=== PATIENT | male | born 1970 | race Caucasian/White ===

== ENCOUNTER 2023-01-30 23:43 | Emergency (ER) | payer BC, SELFPAY ==
[2023-01-30 23:48] VITALS: BP 150/85; PULSE 83; RESP 18; TEMP 36.8; O2SAT 96; BMI 28.5
--- NOTE | 2023-01-30 23:58 | ED.LOWEXI1 ---
HPI - Extremity Injury (Lower) General Chief Complaint: Extremity Injury, Lower Time Seen by Provider: 01/30/23 23:55 Source: patient Mode of arrival: walk-in Limitations: no limitations History of Present Illness HPI Narrative: left foot pain. woke up with pain this AM. No injury. No history of gout. Increased pain with weight bearing. Denies similar pain in the past. Related Data Home Medications Medication Instructions Recorded Confirmed bupropion HCl 150 mg 24 hr tablet, 150 mg PO DAILY 01/30/23 01/30/23 extended release clonazepam 1 mg tablet 1 mg PO DAILY 01/30/23 01/30/23 escitalopram oxalate 20 mg tablet 20 mg PO DAILY 01/30/23 01/30/23 meloxicam 15 mg tablet 15 mg PO DAILY 01/30/23 01/30/23 Allergies Allergy/AdvReac Type Severity Reaction Status Date / Time No Known Drug Allergies Allergy Verified 01/30/23 23:48 Review of Systems ROS Status of ROS 10 or more systems reviewed and unremarkable except as noted in history and below Exam Constitutional Vital Signs - 24 hr 01/30/23 23:48 Temperature 98.3 F Pulse Rate [Monitor] 83 Respiratory Rate 18 Blood Pressure [Right Arm] 150/85 H Pulse Oximetry 96 Oxygen Delivery Method Room Air Common normals: no apparent distress, average body habitus, oriented x3, no limitations and healthy appearing HENPR Common normals: normocephalic and head/scalp atraumatic Eye Common normals: PERRL and EOMs intact bilaterally Respiratory Common normals: normal respiratory effort, no retractions and no use of accessory muscles Cardio Common normals: regular rate, regular rhythm, S1 normal heart sound and S2 normal heart sound Extremity Other: mild swelling mid aspect dorsum left foot. Moderate tenderness with light palpation Neuro Common normals: oriented x3, CN's II-XII intact bilaterally, moves all extremities and no focal motor deficits Psych Appearance: grossly normal Course Vital Signs Vital signs: Vital Signs Temperature 98.3 F 01/30/23 23:48 Pulse Rate 83 01/30/23 23:48 Respiratory Rate 18 01/30/23 23:48 Blood Pressure 150/85 H 01/30/23 23:48 Pulse Oximetry 96 01/30/23 23:48 Oxygen Delivery Method Room Air 01/30/23 23:48 Temperature 98.3 F 01/30/23 23:48 Pulse Rate 83 01/30/23 23:48 Respiratory Rate 18 01/30/23 23:48 Blood Pressure 150/85 H 01/30/23 23:48 Pulse Oximetry 96 01/30/23 23:48 Oxygen Delivery Method Room Air 01/30/23 23:48 MDM - Extremity Injury (Lower) MDM Narrative Medical decision making narrative: patient presents with pain left foot. No injury. Pain mid foot and associated tenderness. Labs and IV ordered. xrays ordered. xray demonstrates fracture of the proximal left 5th metatarsals. labs and medications order discontinued once xray demonstrated fracture. Patient provided with an orthopedic shoe and discharged home to followup with orthopedics Discharge Plan Discharge Chief Complaint: Extremity Injury, Lower Clinical Impression: Fracture of metatarsal of left foot, closed Patient Disposition: Home, Self-Care Prescriptions / Home Meds: No Action bupropion HCl 150 mg tablet extended release 24 hr 150 mg PO DAILY meloxicam 15 mg tablet 15 mg PO DAILY escitalopram oxalate 20 mg tablet 20 mg PO DAILY clonazepam 1 mg tablet 1 mg PO DAILY Instructions: Foot Fracture in Adults (ED) Additional Instructions: follow up with orthopedics Stand Alone Forms: Portal Instructions Referrals: Sunny Day DO [Primary Care Provider] - 1 week
--- NOTE | 2023-01-30 23:59 | XR_ITS ---
The [address] [address] Patient Name: RUTH ANN PITTS MRN: [id number] date: 1970 Sex: M Assigned Patient Location: ER Current Patient Location: Accession/Order Number: [id number] Exam Date: 01/30/2023 23:56 Report Date: 01/31/2023 00:52 At the request of: GALEN LAGUNA Procedure: XR foot LT min 3V EXAM: XR foot LT min 3V HISTORY: The patient is a 52-year-old male with pain COMPARISON: None. FINDINGS: There is a nondisplaced transverse fracture of the proximal metaphysis of the fifth metatarsal. This is the characteristic location for a Hatfield fracture, and such fractures have a high rate of nonunion and delayed union. There is an old healed fracture of the midshaft of the second metatarsal. No other acute or ununited fractures are seen within the left foot. There is mild osteoarthritic narrowing of the first metatarsophalangeal joint. The widths and alignment of the other joints are maintained. IMPRESSION: Hatfield fracture. Electronically authenticated by: JORDY BROWN Date: 01/31/2023 00:52
--- NOTE | 2023-01-31 00:02 | PC.NURSE ---
pt presents to ED c/o of pain to top of left foot that patient noticed this morning. patient states violeta is swollen and has a burning sensation. denies injury. hx of plantar fascitis to bilateral feet.
--- NOTE | 2023-01-31 00:05 | PC.NURSE ---
pt presents to ED c/o pain to top of left foot. pt states he woke up with swelling and redness and a burning sensation to top of left foot. denies injury. does have hx of plantar fascitis to bilateral feet. takes mobic for pain for right foot.
== END 2023-01-31 00:36 | disposition home or self-care (01) ==
PROVIDERS: Emergency Provider Internal Medicine; PCP Internal Medicine
DX: S92.342A Displaced fracture of fourth metatarsal bone, left foot, initial encounter for closed fracture (principal); Z79.899 Other long term (current) drug therapy; X58.XXXA Exposure to other specified factors, initial encounter
CPT/HCPCS: 73630; 80048; 84550; 85025; 85652; 86140; 99283

== ENCOUNTER 2023-02-08 14:47 | Outpatient (OUT) | payer BC, SELFPAY ==
--- NOTE | 2023-02-08 | XR_ITS ---
[address] [address] Patient Name: RUTH ANN PITTS MRN: [id number] date: 1970 Sex: M Assigned Patient Location: [facility] Current Patient Location: Accession/Order Number: [id number] Exam Date: 02/08/2023 15:13 Report Date: 02/09/2023 05:28 At the request of: NAIF MENENDEZ Procedure: XR foot SKYLAR min 3V EXAMINATION: XR foot SKYLAR min 3V HISTORY: BILATERAL FOOT PAIN COMPARISON: 01/31/2023 FINDINGS: RIGHT FINDINGS: BONES: Stable transverse extra-articular fracture proximal diaphysis of the fifth metatarsal. Ill-defined fracture plane with no significant bony bridging or periosteal reaction. Degenerative changes with joint space narrowing marginal osteophyte formation and enthesopathic spurring of the calcaneus SOFT TISSUES: Negative. No visible soft tissue swelling. OTHER: Negative. LEFT FINDINGS: BONES: Stable transverse extra-articular fracture proximal diaphysis of the fifth metatarsal. Ill-defined fracture plane with no significant bony bridging or periosteal reaction. Degenerative changes with joint space narrowing marginal osteophyte formation and enthesopathic spurring of the calcaneus SOFT TISSUES: Negative. No visible soft tissue swelling. OTHER: Negative. IMPRESSION: RIGHT CONCLUSION: Stable 5 metatarsal fracture with minimal interval healing LEFT CONCLUSION: Stable fifth metatarsal fracture with minimal interval healing Electronically authenticated by: MARTY LÓPEZ Date: 02/09/2023 05:28
== END 2023-02-08 14:48 | disposition home or self-care (01) ==
LOC: RAD 14:47
PROVIDERS: PCP Internal Medicine; Visit Provider Podiatrist Foot & Ankle Surgery
DX: M79.671 Pain in right foot (principal); M79.672 Pain in left foot; S92.352A Displaced fracture of fifth metatarsal bone, left foot, initial encounter for closed fracture; S92.351A Displaced fracture of fifth metatarsal bone, right foot, initial encounter for closed fracture; X58.XXXA Exposure to other specified factors, initial encounter
CPT/HCPCS: 73630

== ENCOUNTER 2023-02-25 08:25 | Emergency (ER) | payer BC, SELFPAY ==
[2023-02-25 08:31] VITALS: BP 123/80; PULSE 123; RESP 18; TEMP 36.8; O2SAT 97; BMI 26.3
[2023-02-25 09:03] VITALS: BP 98/69; PULSE 90; O2SAT 98
--- NOTE | 2023-02-25 09:49 | ED.GENADUL1 ---
HPI - General Adult General Chief complaint: Dental/Oral Stated complaint: FACIAL SWELLING ON L SIDE Time Seen by Provider: 02/25/23 08:54 Source: patient Mode of arrival: walk-in Limitations: no limitations History of Present Illness HPI narrative: Patient is a 52-year-old male who is presenting to the Emergency Room today with chief complaint of left sided facial swelling that started this morning when he woke up. Patient has no fever, chills, patient denies any type of trauma. Patient states that none of his teeth are hurting now, but states he has bad teeth has not seen a dentist for many years. Patient has no nausea, vomiting, or any acute complaints. Patient has no redness the side of his face. The difficulty swallowing. No vision or hearing changes. Patient has mild to moderate swelling to the left lower cheek over the left lower mandibular area. There is no swelling over the area of the parotid gland or submental At this time. . All systems are negative except as noted/marked. All systems reviewed and otherwise negative. . Nurses note and vital signs reviewed and patient is not hypoxic. General: The patient appears well and in no apparent distress. Patient is resting comfortably on cart. Patient is not toxic, lethargic, or listless Skin: Warm, dry, no pallor noted. There is no rash noted. No petechiae, purpura. Head: Normocephalic, atraumatic; Patient has moderate facial swelling to the left lower cheek, no redness, no firmness, no signs of abscess. Eye: Normal conjunctiva, no drainage, EOMI. PERRL Ears, Nose, Mouth, and Throat: oral mucosa is moist. Nares patent. Mouth without vesicles. Patient has no signs of periapical abscess, gingivitis, or ANUG. Patient has no palpable abscess to the left lower cheek. Patient has diffuse soft tissue swelling, mild to moderate tenderness palpation. No pain to bilateral temporomandibular joint. No swelling over the left parotid gland or left submental gland. No signs of any type of stone noted intraorally. Patient has no tenderness to palppation to the left lower teeth or the left upper teeth. Cardiovascular: Regular Rate and Rhythm, no murmur, gallop, rub Respiratory: Patient is in no distress, no accessory muscle use, lungs are clear to auscultation, no wheezing, rales or rhonchi Musculoskeletal: Patient has full range of motion of all of the extremities, no motor, sensory, or focal neurological deficits Neurological: A&O x3, normal speech Psychiatric: Cooperative Related Data Home Medications Medication Instructions Recorded Confirmed bupropion HCl 150 mg 24 hr tablet, 150 mg PO DAILY 01/30/23 01/30/23 extended release clonazepam 1 mg tablet 1 mg PO DAILY 01/30/23 01/30/23 escitalopram oxalate 20 mg tablet 20 mg PO DAILY 01/30/23 01/30/23 meloxicam 15 mg tablet 15 mg PO DAILY 01/30/23 01/30/23 Previous Rx's Medication Instructions Recorded penicillin V potassium 500 mg 500 mg PO TID 7 days #21 tabs 02/25/23 tablet Allergies Allergy/AdvReac Type Severity Reaction Status Date / Time No Known Drug Allergies Allergy Verified 01/30/23 23:48 Exam Constitutional Vital Signs, click to edit/add: Last Vital Signs Temp 98.2 F 02/25/23 08:31 Pulse 90 02/25/23 09:03 Resp 18 02/25/23 08:31 BP 98/69 02/25/23 09:03 Pulse Ox 98 02/25/23 09:03 O2 Del Method Room Air 02/25/23 08:31 Course Vital Signs Vital signs: Vital Signs Temperature 98.2 F 02/25/23 08:31 Pulse Rate 123 H 02/25/23 08:31 Respiratory Rate 18 02/25/23 08:31 Blood Pressure 123/80 H 02/25/23 08:31 Pulse Oximetry 97 02/25/23 08:31 Oxygen Delivery Method Room Air 02/25/23 08:31 Temperature 98.2 F 02/25/23 08:31 Pulse Rate 90 02/25/23 09:03 Respiratory Rate 18 02/25/23 08:31 Blood Pressure 98/69 02/25/23 09:03 Pulse Oximetry 98 02/25/23 09:03 Oxygen Delivery Method Room Air 02/25/23 08:31 Medical Decision Making MDM Narrative Medical decision making narrative: Probably 20 minutes was spent discussing lab testing, CAT scan, and performing tests in the Emergency Room versus outpatient and what is the cause differential. I spoken to several administrators trying to find his answers well. Patient does have a PCP, Dr. clifford. Ultimately patient has decided to have no testing in the Emergency Room due to financial constraints and he has multiple medical bills are piling up. Patient rather have an antibiotic at this time, he will do sour candy at home despite this not having swelling ovary a saliva gland on exam. Patient has swelling and in between the saliva gland and submental gland. Patient has elected to have no testing. Patient is aware the risk and benefits of not having any testing the are at this time. Patient's presentation appears to have swelling and inflammation secondary to most likely a bad tooth. Patient does not have typical swelling over the parotid or submental area they would typically see with the saliva stone. However patient is aware that did not know that without performing CT of the face. Patient has declined CT at this time. She had decision-making has been done. Patient was very pleasant to take care of, very thankful for help. Patient will follow-up with PCP in follow-up with dentist as well. Patient was prescribed Pen-Vee K. Patient's time of Motrin and ice for pain. Discharge Plan Discharge Chief Complaint: Dental/Oral Clinical Impression: Atypical face pain, Facial swelling, Dental caries, Toothache Patient Disposition: Home, Self-Care Prescriptions / Home Meds: New penicillin V potassium 500 mg tablet 500 mg PO TID 7 Days Qty: 21 0RF No Action bupropion HCl 150 mg tablet extended release 24 hr 150 mg PO DAILY meloxicam 15 mg tablet 15 mg PO DAILY escitalopram oxalate 20 mg tablet 20 mg PO DAILY clonazepam 1 mg tablet 1 mg PO DAILY Instructions: Sialoadenitis (ED), Toothache (ED), Atypical Facial Pain (ED) Additional Instructions: Follow-up with a dentist on Monday. Dental clinic referral sheet has been given to you As well. If facial swelling its worse, pain gets worse, return to Emergency Room. Use ice 20 minutes on, 20 minutes off. Work note has been provided if needed. Using [id number] Tylenol and either Motrin, Advil or ibuprofen for pain along with ice. Education on saliva stones have been given to for educational purposes only, I am not diagnosing you with a saliva started at this time. Whartons Duct and Gunnar Duct of parotid stone and submental stone is what we are discussing at bedside for educational purposes only. Stand Alone Forms: Portal Instructions Referrals: Sunny Clifford, [Primary Care Provider] - 1 week
== END 2023-02-25 09:57 | disposition home or self-care (01) ==
PROVIDERS: Emergency Provider Emergency Medicine; PCP Internal Medicine
DX: R22.0 Localized swelling, mass and lump, head (principal); K02.9 Dental caries, unspecified; K08.89 Other specified disorders of teeth and supporting structures; G50.1 Atypical facial pain; Z79.899 Other long term (current) drug therapy
CPT/HCPCS: 36415; 80053; 83605; 85025; 87040; 99283

== ENCOUNTER 2023-03-13 07:38 | Outpatient (OUT) | payer BC, SELFPAY ==
--- NOTE | 2023-03-13 07:42 | XR_ITS ---
The [address] [address] Patient Name: RUTH ANN PITTS MRN: [id number] date: 1970 Sex: M Assigned Patient Location: [facility] Current Patient Location: [facility] Accession/Order Number: [id number] Exam Date: 03/13/2023 07:50 Report Date: 03/13/2023 08:57 At the request of: ROBY NELSON Procedure: XR DEXA axial skeleton EXAMINATION: XR DEXA axial skeleton HISTORY: History Of Healed Fragility Fracture Z87.310 COMPARISON: No relevant comparison available. TECHNIQUE: Dual-energy X-ray absorptiometry (DXA) was performed. FINDINGS: SPINE ANALYSIS: Average bone mineral density is 1.7 x 2 g/cm2. T-score (standard deviation relative to young adult mean): 4.3 . HIP ANALYSIS: Lowest bone mineral density is within the left femoral neck, 0.918 g/cm2. T-score (standard deviation relative to young adult mean): -1.2 . XR/XR DEXA axial skeleton IMPRESSION: [employer] Classification: Osteopenia - Moderate Fracture Risk Electronically authenticated by: RUTH ANN CONRAD Date: 03/13/2023 08:57
== END 2023-03-13 07:39 | disposition home or self-care (01) ==
LOC: RAD 07:38
PROVIDERS: PCP Internal Medicine; Visit Provider Internal Medicine
DX: Z87.310 Personal history of (healed) osteoporosis fracture (principal); M85.852 Other specified disorders of bone density and structure, left thigh
CPT/HCPCS: 77080

== ENCOUNTER 2023-03-22 11:17 | Outpatient (OUT) | payer BC, SELFPAY ==
--- NOTE | 2023-03-22 | XR_ITS ---
[address] [address] Patient Name: RUTH ANN PITTS MRN: [id number] date: 1970 Sex: M Assigned Patient Location: [facility] Current Patient Location: [facility] Accession/Order Number: [id number] Exam Date: 03/22/2023 11:40 Report Date: 03/22/2023 22:13 At the request of: NAIF MENENDEZ Procedure: XR foot SKYLAR min 3V EXAMINATION: XR foot SKYLAR min 3V HISTORY: BILATERAL FOOT PAIN COMPARISON: 02/08/2023 FINDINGS: RIGHT FINDINGS: BONES: No acute fracture or dislocation. Stable transverse extra-articular fracture proximal diaphysis of the fifth metatarsal with no interval bony bridging or periosteal reaction SOFT TISSUES: Negative. No visible soft tissue swelling. OTHER: Negative. LEFT FINDINGS: BONES: No acute fracture or dislocation. Stable transverse extra-articular fracture proximal diaphysis of the fifth metatarsal with no interval bony bridging or periosteal reaction, overall increase in lucency of the fracture plane. SOFT TISSUES: Negative. No visible soft tissue swelling. OTHER: Negative. XR/XR foot SKYLAR min 3V IMPRESSION: RIGHT CONCLUSION: Stable extra-articular fracture of the fifth metatarsal with no signs of interval healing LEFT CONCLUSION: Extra-articular fracture base of the fifth metatarsal with increasing lysis but no bony bridging Electronically authenticated by: MARTY LÓPEZ Date: 03/22/2023 22:13
== END 2023-03-22 11:18 | disposition home or self-care (01) ==
LOC: RAD 11:17
PROVIDERS: PCP Internal Medicine; Visit Provider Podiatrist Foot & Ankle Surgery
DX: M79.671 Pain in right foot (principal); M79.672 Pain in left foot
CPT/HCPCS: 73630